=== PATIENT | male | born 1975 | race Caucasian/White ===

== ENCOUNTER 2016-04-26 07:41 | Emergency (ER) | payer BC ==
--- NOTE | 2016-04-26 08:13 | ED CLINICAL REPORT ---
Clinical Report - Physicians/Mid Levels [facility] [address] [place] [address] 04/26/2016 7:43 Patient: ABHINAV PALMA Time Seen: 0810. Arrived- By private vehicle. Historian- patient. HISTORY OF PRESENT ILLNESS Chief Complaint: DENTAL PAIN. This started several days ago and is still present. Pain described as severe. No sore throat, mouth sores, nasal discharge or congestion or ear pain. No swollen jaw or face or facial pain. He has had toothache and jaw pain. (Pt states he has had bone grafting done, but is trying to save money for the implants.). Similar symptoms previously: Recent medical care: Not recently seen/assessed. REVIEW OF SYSTEMS No fever, eye discomfort, cough, difficulty breathing or chest pain. No nausea, diarrhea, abdominal pain, difficulty with urination or headache. No fainting episodes, joint pain, skin rash, enlarged lymph nodes or vomiting. All systems otherwise negative, except as recorded above. PAST HISTORY Problems: Infectious Mononucleosis. Hypertension. Dental Caries. Depression. Additional Surgeries: Dental Surgery. Medications: TraZODone HCl Oral. Gabapentin Oral. Allergies: Penicillin. SOCIAL HISTORY Smoker- current status unknown. No alcohol use or drug use. ADDITIONAL NOTES The nursing notes have been reviewed. PHYSICAL EXAM Vital Signs: 04/26/2016 07:50 BP: 134/85. HR: 60. RR: 16. O2 saturation: 100%. Temp: 98.1 F. Have been reviewed. Appearance: Alert. No acute distress. Head: Normal external inspection. Eyes: Pupils equal, round and reactive to light. Conjunctivae and eyelids normal. ENT: Severe, extensive dental decay (Pt has no maxillary teeth. 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 Remaining teeth are largely decayed to the gum line.). Nose normal. Lips normal. No trismus present. (Pt has R mandibular gingival tenderness with no swelling or fluctuance.). Neck: Normal inspection. Respiratory: No respiratory distress. Skin: Normal skin color. No rash. Normal skin turgor. Extremities: Extremities exhibit normal ROM. Neuro: No motor deficit. (Grossly oriented and intact.). LABS, X-RAYS, AND EKG Pulse Oximetry: 04/26/2016 07:50 O2 saturation: 100%. (FIO2 - room air). Interpretation: normal. PROGRESS AND PROCEDURES Course of Care: Pt was treated with clindamycin and Percocet. Pt is advised to follow up with the oral surgeon as soon as possible. Patient counseled in person regarding the patient's stable condition, diagnosis and need for follow-up. Concerns were addressed. Old medical records reviewed. Disposition: Discharged. Condition: stable. CLINICAL IMPRESSION Dental pain. INSTRUCTIONS Drink plenty of fluids. Warnings: SEDATIVE MEDICATION: You were given sedative medication during your visit. Do not drive or operate dangerous machinery for 6 hours. GENERAL WARNINGS: Return or contact your physician immediately if your condition worsens or changes unexpectedly, if not improving as expected, or if other problems arise. Your Current Medications: CONTINUE TAKING THE FOLLOWING MEDICATIONS: Gabapentin Oral. TraZODone HCl Oral. Prescription Medications: Cleocin 300 mg: take 1 capsule orally every 6 hours for 7 days. No refill. Substitution is permissible. Oxycodone/APAP 5 mg/325 mg: take 1-2 tablets orally every 4 hours as needed for pain. Dispense twenty (20). No refill. Follow-up: Follow up with an oral surgeon. Call for the next available appointment. Understanding of the discharge instructions verbalized by patient. (Electronically signed by Jeanette Mtz MD 04/26/2016 9:09)
--- NOTE | 2016-04-26 08:13 | ED NURSING NOTES ---
Clinical Report - Nurses [facility] [address] [place] [address] 04/26/2016 7:43 Patient: ABHINAV PALMA TRIAGE Triage time 07:50. Acuity: LEVEL 5. Chief Complaint: MOUTH SORE. Alert. No acute distress. SEPSIS SCREEN: Sepsis Screen. Negative (no infection suspected/documented). ACACIA COMA SCORE: [place] Coma Scale: 15- eyes open spontaneously (4); best verbal response- oriented x 4 (5); best motor response- obeys commands (6). --07:53 Meenakshi Rodríguez R.N. 07:50 04/26/16. BP: 134/85. HR: 60. RR: 16. O2 saturation: 100%. Temp: 98.1 F. Pain level now 8/10. --07:53 Meenakshi Rodríguez R.N. Weight: 78 kg stated. Height/Length: 70 inches Per Patient. BMI: 24.7. --07:52 Meenakshi Rodríguez R.N. Medications Gabapentin Oral. --07:52 Meenakshi Rodríguez R.N. TraZODone HCl Oral. --07:52 Meenakshi Rodríguez R.N. Allergies Penicillin. --07:52 Meenakshi Rodríguez R.N. History Arrived by private vehicle. Historian: patient. Unaccompanied. Primary physician (Brie). Onset. (2 days ago). 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 PAST MEDICAL HX: Immunizations: up-to-date. SOCIAL HX: Light tobacco smoker (cigarette)- less than 1/2 a pack per day. No alcohol use or drug use. ABUSE ASSESSMENT: No report of abuse. NUTRITIONAL RISK ASSESSMENT: The nutritional risk assessment revealed no deficiencies. FUNCTIONAL ASSESSMENT: Functional assessment: no impairments noted. LEARNING NEEDS ASSESSMENT: The learning needs assessment revealed no barriers. --07:53 Meenakshi Rodríguez R.N. PROBLEMS: Infectious Mononucleosis. Strep Throat. Hypertension. Dental Caries. Abscess. Depression. Dental Trauma. Dental Abscess. Dental Pain. --07:52 Meenakshi Rodríguez R.N. ADDITIONAL SURGERIES: Dental Surgery. --07:52 Meenakshi Rodríguez R.N. Interventions ID band on patient. Ambulatory. --07:53 Meenakshi Rodríguez R.N. PHYSICAL ASSESSMENT Ambulatory to room. GENERAL / NEURO / PSYCH: Alert. Appears in no acute distress. --07:53 Meenakshi Rodríguez R.N. NURSING PROGRESS NOTES Two patient identifiers checked. Call light placed in reach. Patient ready for evaluation- chart flagged. --07:53 Meenakshi Rodríguez R.N. 08:16 04/26/2016 Cleocin (Clindamycin HCl) PO 300 mg given. Allergies verified and confirmed 5 rights. --08:16 Meenakshi Rodríguez R.N. 08:16 04/26/2016 Oxycodone-APAP (Oxycodone-Acetaminophen) PO 5/325 mg Tablets 1 tab given. Allergies verified, confirmed 5 rights and sedative warning given to the patient. --08:16 Meenakshi Rodríguez R.N. DISPOSITION / DISCHARGE 08:16. Departure time: 0816. Condition at departure: stable. No learning barriers present. Discharge instructions provided and reviewed with the patient. Reviewed medication(s) side effects, precautions, dosing and course information. Prescription(s) given to the patient. Reviewed referral to family practice for followup. Patient verbalized understanding. Written instructions provided in Tongan. The patient was discharged home and unaccompanied at time of discharge. He left the Emergency Department ambulatory. Medication list reviewed and validated. --08:17 Meenakshi Rodríguez R.N. 08:16 04/26/16. RR: 18. --08:17 Meenakshi Rodríguez R.N. Locked/Released at 04/26/2016 8:18 by Meenakshi Rodríguez R.N.
--- NOTE | 2016-04-26 08:13 | ED ORDER SUMMARY ---
..... Patient: ABHINAV PALMA OrderSheet [facility] VisitID: [id number] [address] [place] [address] 40y, M Registration Date/Time: 04/26/2016 ORDER SHEET Weight: 78.0 kg (stated) Allergies: Penicillin GENERAL ORDERS: MEDICATION ORDERS: Cleocin PO 300 mg (NOW) (08:10 04/26/2016 Eli BURCH) (Ack 8:11 Mackenzie R.N.) (8:16 Mackenzie R.N.) Oxycodone-APAP PO 5/325 mg (HIGH ALERT MEDICATION, NOW) (08:10 04/26/2016 Eli BURCH) (Ack 8:11 Mackenzie R.N.) (8:16 Mackenzie R.N.) IV FLUIDS: ORDER SHEET NOTES: [Electronically signed by Meenakshi Rodríguez R.N. (08:18 04/26/2016)] [Electronically signed by Jeanette Mtz MD (09:09 04/26/2016)] [Electronically locked/signed by Meenakshi Rodríguez R.N. (08:18 04/26/2016)]
--- NOTE | 2016-04-26 08:13 | ED NURSING NOTES ---
Clinical Report - Nurses [facility] [address] [place] [address] 04/26/2016 7:43 Patient: ABHINAV PALMA TRIAGE Triage time 07:50. Acuity: LEVEL 5. Chief Complaint: MOUTH SORE. Alert. No acute distress. SEPSIS SCREEN: Sepsis Screen. Negative (no infection suspected/documented). ACACIA COMA SCORE: [place] Coma Scale: 15- eyes open spontaneously (4); best verbal response- oriented x 4 (5); best motor response- obeys commands (6). --07:53 Meenakshi Rodríguez R.N. 07:50 04/26/16. BP: 134/85. HR: 60. RR: 16. O2 saturation: 100%. Temp: 98.1 F. Pain level now 8/10. --07:53 Meenakshi Rodríguez R.N. Weight: 78 kg stated. Height/Length: 70 inches Per Patient. BMI: 24.7. --07:52 Meenakshi Rodríguez R.N. Medications Gabapentin Oral. --07:52 Meenakshi Rodríguez R.N. TraZODone HCl Oral. --07:52 Meenakshi Rodríguez R.N. Allergies Penicillin. --07:52 Meenakshi Rodríguez R.N. History Arrived by private vehicle. Historian: patient. Unaccompanied. Primary physician (Brie). Onset. (2 days ago). 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 PAST MEDICAL HX: Immunizations: up-to-date. SOCIAL HX: Light tobacco smoker (cigarette)- less than 1/2 a pack per day. No alcohol use or drug use. ABUSE ASSESSMENT: No report of abuse. NUTRITIONAL RISK ASSESSMENT: The nutritional risk assessment revealed no deficiencies. FUNCTIONAL ASSESSMENT: Functional assessment: no impairments noted. LEARNING NEEDS ASSESSMENT: The learning needs assessment revealed no barriers. --07:53 Meenakshi Rodríguez R.N. PROBLEMS: Infectious Mononucleosis. Strep Throat. Hypertension. Dental Caries. Abscess. Depression. Dental Trauma. Dental Abscess. Dental Pain. --07:52 Meenakshi Rodríguez R.N. ADDITIONAL SURGERIES: Dental Surgery. --07:52 Meenakshi Rodríguez R.N. Interventions ID band on patient. Ambulatory. --07:53 Meenakshi Rodríguez R.N. PHYSICAL ASSESSMENT Ambulatory to room. GENERAL / NEURO / PSYCH: Alert. Appears in no acute distress. --07:53 Meenakshi Rodríguez R.N. NURSING PROGRESS NOTES Two patient identifiers checked. Call light placed in reach. Patient ready for evaluation- chart flagged. --07:53 Meenakshi Rodríguez R.N. 08:16 04/26/2016 Cleocin (Clindamycin HCl) PO 300 mg given. Allergies verified and confirmed 5 rights. --08:16 Meenakshi Rodríguez R.N. 08:16 04/26/2016 Oxycodone-APAP (Oxycodone-Acetaminophen) PO 5/325 mg Tablets 1 tab given. Allergies verified, confirmed 5 rights and sedative warning given to the patient. --08:16 Meenakshi Rodríguez R.N. DISPOSITION / DISCHARGE 08:16. Departure time: 0816. Condition at departure: stable. No learning barriers present. Discharge instructions provided and reviewed with the patient. Reviewed medication(s) side effects, precautions, dosing and course information. Prescription(s) given to the patient. Reviewed referral to family practice for followup. Patient verbalized understanding. Written instructions provided in Austrian. The patient was discharged home and unaccompanied at time of discharge. He left the Emergency Department ambulatory. Medication list reviewed and validated. --08:17 Meenakshi Rodríguez R.N. 08:16 04/26/16. RR: 18. --08:17 Meenakshi Rodríguez R.N. Locked/Released at 04/26/2016 8:18 by Meenakshi Rodríguez R.N.
--- NOTE | 2016-04-26 08:13 | ED ORDER SUMMARY ---
..... Patient: ABHINAV PALMA OrderSheet [facility] VisitID: [id number] [address] [place] [address] 40y, M Registration Date/Time: 04/26/2016 ORDER SHEET Weight: 78.0 kg (stated) Allergies: Penicillin GENERAL ORDERS: MEDICATION ORDERS: Cleocin PO 300 mg (NOW) (08:10 04/26/2016 Eli BURCH) (Ack 8:11 Mackenzie R.N.) (8:16 Mackenzie R.N.) Oxycodone-APAP PO 5/325 mg (HIGH ALERT MEDICATION, NOW) (08:10 04/26/2016 Eli BURCH) (Ack 8:11 Macknezie R.N.) (8:16 Mackenzie R.N.) IV FLUIDS: ORDER SHEET NOTES: [Electronically signed by Meenakshi Rodríguez R.N. (08:18 04/26/2016)] [Electronically signed by Jeanette Mtz MD (09:09 04/26/2016)] [Electronically locked/signed by Meenakshi Rodríguez R.N. (08:18 04/26/2016)]
--- NOTE | 2016-04-26 09:09 | ED MAR SUMMARY ---
..... Medication Administration Record [facility] [address] [place] [address] Patient: ABHINAV PALMA Visit ID: [id number] 40y, M Weight: 78.0 kg Height/Length: 70 in BMI: 24.7 ALLERGIES: Penicillin Given 08:04/26/2016 Meenakshi Rodríguez R.N. Medication Administered: CLEOCIN [PO] (CLINDAMYCIN HCL), Dose: 300 mg PO. Medication Ordered: Cleocin PO 300 mg (NOW). Given 08:04/26/2016 Meenakshi Rodríguez RSamanthaNSamantha Medication Administered: OXYCODONE-APAP [PO] (OXYCODONE-ACETAMINOPHEN), Dose: 1 tab 5/325 mg Tablets PO. Medication Ordered: Oxycodone-APAP PO 5/325 mg (HIGH ALERT MEDICATION, NOW).
--- NOTE | 2016-04-26 09:09 | ED DISCHARGE INSTRUCTIONS ---
Patient: ABHINAV PALMA General Instructions [facility] VisitID: [id number] [place] [address] 40y, M Registration Date/Time: 04/26/2016 Dental pain. INSTRUCTIONS Drink plenty of fluids. Warnings: SEDATIVE MEDICATION: You were given sedative medication during your visit. Do not drive or operate dangerous machinery for 6 hours. GENERAL WARNINGS: Return or contact your physician immediately if your condition worsens or changes unexpectedly, if not improving as expected, or if other problems arise. Your Current Medications: CONTINUE TAKING THE FOLLOWING MEDICATIONS: Gabapentin Oral. TraZODone HCl Oral. Prescription Medications: Cleocin 300 mg: take 1 capsule orally every 6 hours for 7 days. No refill. Substitution is permissible. Oxycodone/APAP 5 mg/325 mg: take 1-2 tablets orally every 4 hours as needed for pain. Dispense twenty (20). No refill. Follow-up: Follow up with an oral surgeon. Call for the next available appointment. Understanding of the discharge instructions verbalized by patient. ADDITIONAL INFORMATION Dental Pain A crack or cavity in the tooth, which exposes the sensitive inner area of the tooth can cause tooth pain. An infection in the gum or the root of the tooth can cause pain and swelling. The pain is often made worse by drinking hot or cold fluids, or biting on hard foods. Pain may spread from the tooth to the ear or jaw on the same side. Home Care: Avoid hot and cold foods and liquids since your tooth may be sensitive to temperature changes. If your tooth is chipped or cracked, or if there is a large open cavity, apply OIL OF CLOVES (available ieog-noc-daytbzd in drug stores) directly to the tooth to reduce pain. Some pharmacies carry an pajw-xfw-vfinver "toothache kit." This contains a paste, which can be applied over the exposed tooth to decrease sensitivity. A cold pack on your jaw over the sore area may help reduce pain. You may use acetaminophen (Tylenol) or ibuprofen (Motrin, Advil) to control pain, unless another medicine was prescribed. [ NOTE: If you have chronic liver or kidney disease or ever had a stomach ulcer or GI bleeding, talk with your doctor before using these medicines.] If you have signs of an infection, an antibiotic will be given. Take it as directed. Follow-Up as directed with a dentist. Your pain may go away with the treatment given. However, only a dentist can fully evaluate and treat the cause and prevent the pain from coming back again. TOOTHACHE IS A SIGN OF DISEASE IN YOUR TOOTH AND SHOULD BE EXAMINED AND TREATED BY A DENTIST. Get Prompt Medical Attention if any of the following occur: Your face becomes swollen or red Pain worsens or spreads to the neck Fever over 100.4 F (38.0 C) Unusual drowsiness; headache or stiff neck; weakness or fainting Pus drains from the tooth Difficulty swallowing or breathing You have been given the following additional information: Dental Pain (Electronically signed by Jeanette Mtz MD 04/26/2016 9:09)
--- NOTE | 2016-04-26 09:09 | ED MED RECONCILIATION SUMMARY ---
Patient: ABHINAV PALMA Medication Reconciliation Report [facility] VisitID: [id number] [address] [place] [address] 40y, M Registration Date/Time: 04/26/2016 Weight: 78.0 kg Height/Length: 70 in. BMI: 24.7 ALLERGIES: Penicillin The patient's Home Medications are listed below: CONTINUE TAKING THE FOLLOWING MEDICATIONS: Gabapentin Oral TraZODone HCl Oral The source(s) of the original Home Medication information: Not obtained. The following Medications were given to the patient in the Emergency Department: Cleocin [PO] PO 300 mg, administered: 04/26/2016 8:16:00 AM Oxycodone-APAP [PO] PO 1 tab, administered: 04/26/2016 8:16:00 AM The following Medications were prescribed to the patient: Cleocin 300 mg: take 1 capsule orally every 6 hours for 7 days. No refill. Substitution is permissible. -- Jeanette Mtz MD Oxycodone/APAP 5 mg/325 mg: take 1-2 tablets orally every 4 hours as needed for pain. Dispense twenty (20). No refill. -- Jeanette Mtz MD
--- NOTE | 2016-04-26 09:09 | ED MED RECONCILIATION SUMMARY ---
Patient: ABHINAV PALMA Medication Reconciliation Report [facility] VisitID: [id number] [address] [place] [address] 40y, M Registration Date/Time: 04/26/2016 Weight: 78.0 kg Height/Length: 70 in. BMI: 24.7 ALLERGIES: Penicillin The patient's Home Medications are listed below: CONTINUE TAKING THE FOLLOWING MEDICATIONS: Gabapentin Oral TraZODone HCl Oral The source(s) of the original Home Medication information: Not obtained. The following Medications were given to the patient in the Emergency Department: Cleocin [PO] PO 300 mg, administered: 04/26/2016 8:16:00 AM Oxycodone-APAP [PO] PO 1 tab, administered: 04/26/2016 8:16:00 AM The following Medications were prescribed to the patient: Cleocin 300 mg: take 1 capsule orally every 6 hours for 7 days. No refill. Substitution is permissible. -- Jeanette Mtz MD Oxycodone/APAP 5 mg/325 mg: take 1-2 tablets orally every 4 hours as needed for pain. Dispense twenty (20). No refill. -- Jeanette Mtz MD
--- NOTE | 2016-04-26 09:09 | ED MAR SUMMARY ---
..... Medication Administration Record [facility] [address] [place] [address] Patient: ABHINAV PALMA Visit ID: [id number] 40y, M Weight: 78.0 kg Height/Length: 70 in BMI: 24.7 ALLERGIES: Penicillin Given 08:04/26/2016 Meenakshi Rodríguez R.N. Medication Administered: CLEOCIN [PO] (CLINDAMYCIN HCL), Dose: 300 mg PO. Medication Ordered: Cleocin PO 300 mg (NOW). Given 08:04/26/2016 Meenakshi Rodríguez RSamanthaNSamantha Medication Administered: OXYCODONE-APAP [PO] (OXYCODONE-ACETAMINOPHEN), Dose: 1 tab 5/325 mg Tablets PO. Medication Ordered: Oxycodone-APAP PO 5/325 mg (HIGH ALERT MEDICATION, NOW).
--- NOTE | 2016-04-26 09:09 | ED DISCHARGE INSTRUCTIONS ---
Patient: ABHINAV PALMA General Instructions [facility] VisitID: [id number] [place] [address] 40y, M Registration Date/Time: 04/26/2016 Dental pain. INSTRUCTIONS Drink plenty of fluids. Warnings: SEDATIVE MEDICATION: You were given sedative medication during your visit. Do not drive or operate dangerous machinery for 6 hours. GENERAL WARNINGS: Return or contact your physician immediately if your condition worsens or changes unexpectedly, if not improving as expected, or if other problems arise. Your Current Medications: CONTINUE TAKING THE FOLLOWING MEDICATIONS: Gabapentin Oral. TraZODone HCl Oral. Prescription Medications: Cleocin 300 mg: take 1 capsule orally every 6 hours for 7 days. No refill. Substitution is permissible. Oxycodone/APAP 5 mg/325 mg: take 1-2 tablets orally every 4 hours as needed for pain. Dispense twenty (20). No refill. Follow-up: Follow up with an oral surgeon. Call for the next available appointment. Understanding of the discharge instructions verbalized by patient. ADDITIONAL INFORMATION Dental Pain A crack or cavity in the tooth, which exposes the sensitive inner area of the tooth can cause tooth pain. An infection in the gum or the root of the tooth can cause pain and swelling. The pain is often made worse by drinking hot or cold fluids, or biting on hard foods. Pain may spread from the tooth to the ear or jaw on the same side. Home Care: Avoid hot and cold foods and liquids since your tooth may be sensitive to temperature changes. If your tooth is chipped or cracked, or if there is a large open cavity, apply OIL OF CLOVES (available lwqd-boc-ebymgnz in drug stores) directly to the tooth to reduce pain. Some pharmacies carry an duta-qrf-vbxxnse "toothache kit." This contains a paste, which can be applied over the exposed tooth to decrease sensitivity. A cold pack on your jaw over the sore area may help reduce pain. You may use acetaminophen (Tylenol) or ibuprofen (Motrin, Advil) to control pain, unless another medicine was prescribed. [ NOTE: If you have chronic liver or kidney disease or ever had a stomach ulcer or GI bleeding, talk with your doctor before using these medicines.] If you have signs of an infection, an antibiotic will be given. Take it as directed. Follow-Up as directed with a dentist. Your pain may go away with the treatment given. However, only a dentist can fully evaluate and treat the cause and prevent the pain from coming back again. TOOTHACHE IS A SIGN OF DISEASE IN YOUR TOOTH AND SHOULD BE EXAMINED AND TREATED BY A DENTIST. Get Prompt Medical Attention if any of the following occur: Your face becomes swollen or red Pain worsens or spreads to the neck Fever over 100.4 F (38.0 C) Unusual drowsiness; headache or stiff neck; weakness or fainting Pus drains from the tooth Difficulty swallowing or breathing You have been given the following additional information: Dental Pain (Electronically signed by Jeanette Mtz MD 04/26/2016 9:09)
== END 2016-04-26 08:15 | disposition home or self-care (01) ==
LOC: ED SRH 07:41
DX: K08.89 Other specified disorders of teeth and supporting structures (principal); I10 Essential (primary) hypertension; Z79.899 Other long term (current) drug therapy; Z88.0 Allergy status to penicillin